=== PATIENT | female | born 1990 | race Caucasian/White ===

== ENCOUNTER 2025-02-05 16:14 | Emergency (ER) | payer OTHER ==
[~2025-02-05] VITALS: Ht 170.2 cm; Wt 105.0 kg
[2025-02-05] MEDS ORDERED: ALBUTEROL/IPRATROPIUM 3 ML NEB INH ONE (18:00)
[2025-02-05] MEDS ORDERED: DEXAMETHASONE SOD PHOS 10 MG/ML VIAL IM ONE (19:30)
[2025-02-05 20:19] LABS: INFLUENZA B NAA NEGATIVE (NEGATIVE); RESPIRATORY SYNCYTIAL VIR NAA NEGATIVE (NEGATIVE)
[2025-02-05] MEDS ORDERED: ALBUTEROL SULFATE 8 GM HOME.PACK INH ONE (20:45)
[2025-02-05] MEDS ORDERED: AZITHROMYCIN 250 MG HOME.PACK PO ONE ×2 (20:45→20:55)
[2025-02-05] MEDS ORDERED: methylPREDNISolone 4 MG HOME.PACK PO ONE (20:45)
[2025-02-05 21:10] VITALS: BP 105/69
== END 2025-02-05 21:10 | disposition home or self-care (01) ==
LOC: ED 16:14
PROVIDERS: Family Medicine
DX: J45.901 Unspecified asthma with (acute) exacerbation (principal)
CPT/HCPCS: 71045; 87502; 94640; 96372; 99285-25; J1100; U0002